=== PATIENT | female | born 1995 | race African-American/Black ===

== ENCOUNTER 2019-10-12 10:06 | Emergency (ER) | payer OTHER ==
[~2019-10-12] VITALS: Ht 160 cm; Wt 105.7 kg
[~2019-10-12 10:06] MED LIST: ACETAMINOPHEN-1 EAC2 PO; CIPROFLOXACIN500 M1 PO; LEVEMIR FL100 UNIT/2 SUBQ; ZOFRAN ODT4 MG PO
[2019-10-12] MEDS ORDERED: AMOXICILLI400 MG/5 M PO (10:28)
[2019-10-12] MEDS ORDERED: NAPROSYN500 MG PO (11:22)
[2019-10-12] MEDS ORDERED: ULTRAM 50MG TAB50 MG PO (11:22)
[2019-10-12 11:47] VITALS: BP 158/74
== END 2019-10-12 11:58 | disposition home or self-care (01) ==
LOC: ER 10:06
DX: K08.89 Other specified disorders of teeth and supporting structures (principal); E11.9 Type 2 diabetes mellitus without complications; F17.210 Nicotine dependence, cigarettes, uncomplicated; Z79.4 Long term (current) use of insulin; Z88.6 Allergy status to analgesic agent; Z88.8 Allergy status to other drugs, medicaments and biological substances